=== PATIENT | male | born 1995 | race Caucasian/White ===

== ENCOUNTER 2018-03-27 20:14 | Emergency (ER) | payer SELFPAY ==
[~2018-03-27] VITALS: Ht 167.6 cm; Wt 65.8 kg
[2018-03-27 20:31] VITALS: BP 138/88
[2018-03-27] MEDS ORDERED: IBUPROFEN 800 MG TAB PO ONE (21:00)
[2018-03-27] MEDS ORDERED: BACITRACIN TOP OINT 1 UD PKG TOP ONE (22:15)
== END 2018-03-27 22:07 | disposition home or self-care (01) ==
LOC: ER 20:14
DX: S50.311A Abrasion of right elbow, initial encounter (principal); W01.0XXA Fall on same level from slipping, tripping and stumbling without subsequent striking against object, initial encounter; Y93.89 Activity, other specified; Y99.8 Other external cause status; Y92.89 Other specified places as the place of occurrence of the external cause
CPT/HCPCS: 73080; 73130